=== PATIENT | male | born 1975 | race Caucasian/White ===

== ENCOUNTER → 2016-11-21 | Outpatient (CLI) | payer BC | LOC: MW.CHFP 08:57 | PROVIDERS: ATTEND Family Medicine | DX: N39.0 Urinary tract infection, site not specified (principal); R30.0 Dysuria | CPT/HCPCS: 81001; 87491; 87591 ==

== ENCOUNTER 2018-03-15 08:56 | Emergency (ER) | payer BC ==
[2018-03-15 09:24] VITALS: BP 140/109
[2018-03-15] MEDS ORDERED: Sodium Chloride 0.9% 2.5 ML Syringe FLUSH PRN (09:25)
[2018-03-15] MEDS ORDERED: Sodium Chloride 0.9% 10 ML Syringe FLUSH PRN (09:25)
[2018-03-15] MEDS ORDERED: Ketorolac 30 MG/ML SDV IVPUSH ONE (09:25)
[2018-03-15] MEDS ORDERED: Sodium Chloride 0.9% 1,000 ML IV ONE (09:25)
--- NOTE | 2018-03-15 09:28 | EDM.PDOC ---
ED HPI GENERAL MEDICAL PROBLEM - General Chief Complaint: Abdominal Pain Stated Complaint: ABD PAIN Time Seen by Provider: 03/15/18 09:16 - History of Present Illness INITIAL COMMENTS - FREE TEXT/NARRATIVE: HISTORY AND PHYSICAL: History of present illness: The patient is a 42-year-old male with no GI history except for acid reflux for which he takes Nexium and no abdominal surgical history who presents with lower abdominal pain that has been going on since Thursday night,. The patient says is that the pain started gradually and has increased in intensity but is not associated with dysuria frequency urgency hematuria flank pain nausea vomiting fevers or chills. The patient has no surgical history and has no testicular pain or swelling. He says he has been eating and drinking normally and has no anorexia. The patient has not taken any [id number] medication but does feel like his abdomen is bloated with pain. He states that the pain is bilateral in the lower abdomen and does not localize right or left. The pain does not radiate elsewhere. He has no other systemic complaints no upper respiratory symptoms no recent trauma. The patient has been having normal bowel movements over the last 2-1/2 days and they're not black or bloody nor are they constipated or diarrhea. He had a bowel movement this morning which is normal for him. Review of systems: As per history of present illness and below otherwise all systems reviewed and negative. Past medical history: As per history of present illness and as reviewed below otherwise noncontributory. Surgical history: As per history of present illness and as reviewed below otherwise noncontributory. Social history: No reported history of drug or alcohol abuse. Family history: As per history of present illness and as reviewed below otherwise noncontributory. Physical exam: General: Well-developed well-nourished overweight man who is nontoxic and moves easily in the ED. Vital signs have been reviewed by me HEENT: Atraumatic, normocephalic, negative for conjunctival pallor or scleral icterus, mucous membranes moist, throat clear, neck supple, nontender, trachea midline. Lungs: Clear to auscultation, breath sounds equal bilaterally, chest nontender. Heart: S1S2, regular, negative for clicks, rubs, or JVD. Abdomen: Soft, nondistended, abdomen is rotund and there is some mild tenderness in the lower abdomen bilaterally and suprapubically as well as some periumbilical and right upper quadrant discomfort. There is no rebound or guarding and bowel sounds are normoactive. Negative for masses or hepatosplenomegaly. Negative for costovertebral tenderness. Pelvis: Stable nontender. Genitourinary: Deferred. Rectal: Deferred. Extremities: Atraumatic, negative for cords or calf pain. Neurovascular unremarkable. Neuro: Awake, alert, oriented. Cranial nerves II through XII unremarkable. Cerebellum unremarkable. Motor and sensory unremarkable throughout. Exam nonfocal. Diagnostics: CBC CMP amylase lipase UA CT scan of the abdomen and pelvis urine culture Therapeutics: IV fluids Toradol Cipro Flagyl Please note that there were multiple delays in trying to get the CT scan performed and to get those results. Patient was made aware of these delays. Discussed all testing results with the patient in care plan for home to treat his diverticulitis. We have talked about increasing fiber in his diet and caffeine intake and push hydration and reasons to return to the ED. He does have a provider in the family practice clinic which have advised him to follow- up with and I will prescribe Cipro Flagyl and Bentyl for home. The patient was given a dose of Cipro and Flagyl orally here, but he was offered the first dose IV and declines and would like to disconnect going home. Impression: Lower abdominal pain, diverticulitis Definitive disposition and diagnosis as appropriate pending reevaluation and review of above. abdomen Pain Score (Numeric/FACES): 8 - Related Data Allergies Allergy/AdvReac Type Severity Reaction Status Date / Time No Known Allergies Allergy Verified 03/15/18 09:19 Home Meds: Home Meds Esomeprazole Magnesium [Nexium] 20 mg PO DAILY PRN 03/15/18 [History] Past Medical History - Past Health History Medical/Surgical History: Denies Medical/Surgical History Cardiovascular History: Reports: Hypertension Gastrointestinal History: Reports: GERD Social & Family History - Living Situation & Occupation Living situation: Reports: ED ROS GENERAL - Review of Systems Review Of Systems: ROS reveals no pertinent complaints other than HPI. ED EXAM, GENERAL - Physical Exam Exam: See Below (See dictation) Course - Vital Signs Last Recorded V/S: Last Vital Signs Temp 36.3 C 03/15/18 09:22 Pulse 80 03/15/18 09:22 Resp 18 03/15/18 09:22 BP 140/109 H 03/15/18 09:22 Pulse Ox 96 03/15/18 09:22 - Orders/Labs/Meds Orders: Active Orders 24 hr Category Date Time Status Abdomen Pelvis w Cont [CT] Stat Exams 03/15/18 09:25 Taken CULTURE URINE [RM] Stat Lab 03/15/18 10:35 Received UA W/MICROSCOPIC [URIN] Stat Lab 03/15/18 10:35 Ordered Ciprofloxacin [Ciprofloxacin HCl] Med 03/15/18 12:25 Once 500 mg PO ONETIME ONE Sodium Chloride 0.9% [Saline Flush] Med 03/15/18 09:25 Active 10 ml FLUSH ASDIRECTED PRN Sodium Chloride 0.9% [Saline Flush] Med 03/15/18 09:25 Active 2.5 ml FLUSH ASDIRECTED PRN metroNIDAZOLE Med 03/15/18 12:25 Once 500 mg PO ONETIME ONE Saline Lock Insert [OM.PC] Stat Oth 03/15/18 09:24 Ordered Medication Orders Ciprofloxacin (Ciprofloxacin Hcl) 500 mg PO ONETIME ONE Stop: 03/15/18 12:26 Metronidazole (Metronidazole) 500 mg PO ONETIME ONE Stop: 03/15/18 12:26 Sodium Chloride (Saline Flush) 10 ml FLUSH ASDIRECTED PRN PRN Reason: Keep Vein Open Last Admin: 03/15/18 09:38 Dose: 10 ml Sodium Chloride (Saline Flush) 2.5 ml FLUSH ASDIRECTED PRN PRN Reason: Keep Vein Open Last Admin: 03/15/18 09:38 Dose: 2.5 ml Labs: Laboratory Tests 03/15/18 03/15/18 03/15/18 Range/Units 09:35 09:35 10:35 WBC 9.45 (4.0-11.0) K/uL RBC 4.88 (4.50-5.90) M/uL Hgb 14.1 (13.0-17.0) g/dL Hct 41.9 (38.0-50.0) % MCV 85.9 (80.0-98.0) fL MCH 28.9 (27.0-32.0) pg MCHC 33.7 (31.0-37.0) g/dL RDW Std Deviation 41.5 (28.0-62.0) fl RDW Coeff of [place] 13 (11.0-15.0) % Plt Count 303 (150-400) K/uL MPV 9.90 (7.40-12.00) fL Neut % (Auto) 70.1 (48.0-80.0) % Lymph % (Auto) 18.9 (16.0-40.0) % [place] % (Auto) 9.5 (0.0-15.0) % Eos % (Auto) 1.3 (0.0-7.0) % Baso % (Auto) 0.2 (0.0-1.5) % Neut # (Auto) 6.6 H (1.4-5.7) K/uL Lymph # (Auto) 1.8 (0.6-2.4) K/uL [place] # (Auto) 0.9 H (0.0-0.8) K/uL Eos # (Auto) 0.1 (0.0-0.7) K/uL Baso # (Auto) 0.0 (0.0-0.1) K/uL Nucleated RBC % 0.0 /100WBC Nucleated RBCs # 0 K/uL Sodium 138 (136-148) mmol/L Potassium 4.1 (3.5-5.1) mmol/L Chloride 105 (98-107) mmol/L Carbon Dioxide 28.1 (21.0-32.0) mmol/L BUN 17 (7.0-18.0) mg/dL Creatinine 1.3 (0.8-1.3) mg/dL Est Cr Clr Drug Dosing 74.87 mL/min Estimated GFR (MDRD) 60.0 ml/min Glucose 95 (74-106) mg/dL Calcium 8.9 (8.5-10.1) mg/dL Total Bilirubin 0.4 (0.2-1.0) mg/dL AST 15 (15-37) IU/L ALT 20 (14-63) IU/L Alkaline Phosphatase 81 (46-116) U/L Total Protein 7.5 (6.4-8.2) g/dL Albumin 3.4 (3.4-5.0) g/dL Globulin 4.1 H (2.0-3.5) g/dL Albumin/Globulin Ratio 0.8 L (1.3-2.8) Amylase 53 (25-115) U/L Lipase 169 (73-393) U/L Urine Color YELLOW Urine Appearance CLEAR Urine pH 6.5 (5.0-8.0) Ur Specific [place] 1.020 (1.001-1.035) Urine Protein NEGATIVE (NEGATIVE) mg/dL Urine Glucose (UA) NEGATIVE (NEGATIVE) mg/dL Urine Ketones NEGATIVE (NEGATIVE) mg/dL Urine Occult Blood NEGATIVE (NEGATIVE) Urine Nitrite NEGATIVE (NEGATIVE) Urine Bilirubin NEGATIVE (NEGATIVE) Urine Urobilinogen 0.2 (<2.0) EU/dL Ur Leukocyte Esterase NEGATIVE (NEGATIVE) Urine RBC 0-2 (0-2/HPF) Urine WBC 2-5 (0-5/HPF) Ur Epithelial Cells RARE (NONE-FEW) Urine Bacteria FEW (NEGATIVE) Urine Mucus LIGHT (NONE-MOD) Meds: Medications Generic Name Dose Route Start Last Admin Trade Name Doreen PRN Reason Stop Dose Admin Ciprofloxacin 500 mg 03/15/18 12:25 Ciprofloxacin Hcl PO 03/15/18 12:26 ONETIME ONE Metronidazole 500 mg 03/15/18 12:25 Metronidazole PO 03/15/18 12:26 ONETIME ONE Sodium Chloride 10 ml 03/15/18 09:25 03/15/18 09:38 Saline Flush FLUSH 10 ml ASDIRECTED PRN Administration Keep Vein Open Sodium Chloride 2.5 ml 03/15/18 09:25 03/15/18 09:38 Saline Flush FLUSH 2.5 ml ASDIRECTED PRN Administration Keep Vein Open Discontinued Medications Generic Name Dose Route Start Last Admin Trade Name Doreen PRN Reason Stop Dose Admin Sodium Chloride 1,000 mls @ 999 mls/hr 03/15/18 09:25 03/15/18 09:38 Normal Saline IV 03/15/18 10:25 999 mls/hr STAT ONE Administration Iopamidol 100 ml 03/15/18 11:42 03/15/18 11:42 Isovue Multipack-370 (76%) IVPUSH 03/15/18 11:43 100 ml ONETIME STA Administration Ketorolac Tromethamine 30 mg 03/15/18 09:25 03/15/18 10:15 Toradol IVPUSH 03/15/18 09:26 30 mg ONETIME ONE Administration Departure - Departure Time of Disposition: 12:26 Disposition: Home, Self-Care 01 Condition: Good Clinical Impression: Diverticulitis - Discharge Information Referrals: PCP,None [Primary Care Provider] - Forms: ED Department Discharge Additional Instructions: The following information is given to patients seen in the emergency department who are being discharged to home. This information is to outline your options for follow-up care. We provide all patients seen in our emergency department with a follow-up referral. The need for follow-up, as well as the timing and circumstances, are variable depending upon the specifics of your emergency department visit. If you don't have a primary care physician on staff, we will provide you with a referral. We always advise you to contact your personal physician following an emergency department visit to inform them of the circumstance of the visit and for follow-up with them and/or the need for any referrals to a consulting specialist. The emergency department will also refer you to a specialist when appropriate. This referral assures that you have the opportunity for followup care with a specialist. All of these measure are taken in an effort to provide you with optimal care, which includes your followup. Under all circumstances we always encourage you to contact your private physician who remains a resource for coordinating your care. When calling for followup care, please make the office aware that this follow-up is from your recent emergency room visit. If for any reason you are refused follow-up, please contact the [facility] emergency department at and ask to speak to the emergency department charge nurse. [facility] Primary care- Internal Medicine and Family [address] [address] Please call and follow-up with your provider in the family practice clinic as we discussed in the next week to 10 days and return to ER as needed and as discussed. You had been prescribed Cipro Flagyl and Bentyl to your local pharmacy which she needs to picker feeder and use as directed. Please push hydration and increase fiber in your diet. - My Orders Last 24 Hours: My Active Orders 03/15/18 09:24 Saline Lock Insert [OM.PC] Stat 03/15/18 09:25 Abdomen Pelvis w Cont [CT] Stat Sodium Chloride 0.9% [Saline Flush] 10 ml FLUSH ASDIRECTED PRN Sodium Chloride 0.9% [Saline Flush] 2.5 ml FLUSH ASDIRECTED PRN 03/15/18 10:35 CULTURE URINE [RM] Stat UA W/MICROSCOPIC [URIN] Stat 03/15/18 12:25 Ciprofloxacin [Ciprofloxacin HCl] 500 mg PO ONETIME ONE metroNIDAZOLE 500 mg PO ONETIME ONE - Assessment/Plan Last 24 Hours: My Active Orders 03/15/18 09:24 Saline Lock Insert [OM.PC] Stat 03/15/18 09:25 Abdomen Pelvis w Cont [CT] Stat Sodium Chloride 0.9% [Saline Flush] 10 ml FLUSH ASDIRECTED PRN Sodium Chloride 0.9% [Saline Flush] 2.5 ml FLUSH ASDIRECTED PRN 03/15/18 10:35 CULTURE URINE [RM] Stat UA W/MICROSCOPIC [URIN] Stat 03/15/18 12:25 Ciprofloxacin [Ciprofloxacin HCl] 500 mg PO ONETIME ONE metroNIDAZOLE 500 mg PO ONETIME ONE
[2018-03-15] MEDS ORDERED: Iopamidol 755 MG/ML 500 ML Multipack Bottle IVPUSH STA (11:42)
[2018-03-15] MEDS ORDERED: metroNIDAZOLE 250 MG Tab PO ONE (12:25)
[2018-03-15] MEDS ORDERED: Ciprofloxacin 500 MG Tab PO ONE (12:25)
--- NOTE | 2018-03-15 17:41 | CT ---
EXAM DATE: 03/15/18 PATIENT'S AGE: 42 Patient: BAIRON ABURTO Facility: [place], [place] Site . Site : [id number] Study: CT Abdomen/Pelvis W CONT [id number]/20/2018 11:11:08 AM Ordering Physician: Carlton Moura Final Report: INDICATION: Abdominal pain. COMPARISON: CT scan of the abdomen and pelvis dated 28 December 2009. TECHNIQUE: CT scan of the abdomen and pelvis with intravenous contrast administered. FINDINGS: The lung bases are unremarkable. A few very small low attenuation lesions in the liver which may represent cysts but are too small to adequately characterize. No other focal abnormalities identified in the visualized portions of the liver, spleen, pancreas, and adrenal glands. 1.6 cm cyst in the lower pole of the right kidney. The kidneys are otherwise unremarkable. No hydronephrosis. No obstructing uroliths. Colonic diverticulosis. Focal bowel wall thickening and pericolonic edema involving the proximal sigmoid colon. Small hiatal hernia. The remainder of the GI tract is incompletely distended but shows no gross abnormalities. Normal appendix. No retroperitoneal, pelvic sidewall, or mesenteric adenopathy. IMPRESSION: Diverticulitis involving the proximal sigmoid colon. No evidence of perforation. Dictated by Donn Davison MD @ 03/15/2018 12:19:53 PM Dictated by: Donn Davison MD @ 03/15/2018 12:20:03 (Electronic Signature) Report Signed by Proxy. [facility] HOSPITALIsaac
== END 2018-03-15 12:54 | disposition home or self-care (01) ==
LOC: MW.ED 08:56
DX: K57.32 Diverticulitis of large intestine without perforation or abscess without bleeding (principal); I10 Essential (primary) hypertension
CPT/HCPCS: 36415; 74177; 80053; 81001; 82150; 83690; 85025; 87086; 96361; 96374; 99284; A9270; J1885; J7040; Q9967

== ENCOUNTER 2022-12-31 05:03 | Inpatient (IN) | payer BC ==
[2022-12-31] MEDS ORDERED: Aspirin 81 MG Tab.Chew PO ONE (05:08)
[2022-12-31] MEDS ORDERED: Nitroglycerin 0.4 MG Tab.SL SL PRN (05:13)
[2022-12-31 06:10] LABS: BASOPHILS PERCENT AUTO 0.2 % (0.0-1.5); EOSINOPHILS PERCENT AUTO 0.2 % (0.0-7.0); HEMATOCRIT 43.6 % (38.0-50.0); HEMOGLOBIN 14.6 g/dL (13.0-17.0); LYMPHOCYTES ABSOLUTE AUTO 0.8 K/uL (0.6-2.4); LYMPHOCYTES PERCENT AUTO 15.3 % (16.0-40.0); MEAN CORPUSCULAR HEMOGLOBIN 28.2 pg (27.0-32.0); MEAN CORPUSCULAR HGB CONC 33.5 g/dL (31.0-37.0); MEAN CORPUSCULAR VOLUME 84.3 fL (80.0-98.0); MONOCYTES ABSOLUTE AUTO 0.1 K/uL (0.0-0.8); NEUTROPHILS ABSOLUTE AUTO 4.2 K/uL (1.4-5.7); NEUTROPHILS PERCENT AUTO 82.3 % (48.0-80.0); PLATELET COUNT,PLT 242 K/uL (150-400); RED BLOOD CELL COUNT 5.17 M/uL (4.50-5.90); WHITE BLOOD CELL COUNT,WBC 5.11 K/uL (4.0-11.0)
[2022-12-31 06:29] LABS: D-DIMER QUANTITATIVE 1.27 mg/L FEU (0.00-0.50); INR 1.01 (0.86-1.11)
[2022-12-31 06:30] LABS: PTT,PARTIAL THROMBOPLSTIN TIME < 20.0 SEC (23.9-30.7)
[2022-12-31 06:34] LABS: ALBUMIN 3.5 g/dL (3.4-5.0); BILIRUBIN TOTAL 0.4 mg/dL (0.2-1.0); CALCIUM 8.4 mg/dL (8.5-10.1); CARBON DIOXIDE,CO2 26.9 mmol/L (21.0-32.0); CREATININE 1.5 mg/dL (0.8-1.3); EST CRCL DRUG DOSING (CG) 61.51 mL/min; POTASSIUM,K 3.7 mmol/L (3.5-5.1)
[2022-12-31] MEDS ORDERED: Iopamidol 755 MG/ML 500 ML Multipack Bottle IVPUSH STA (07:06)
[2022-12-31] MEDS ORDERED: cefTRIAXone 1 GM in Sodium Chloride 0.9% 50 ML IV ONE (07:44)
[2022-12-31] MEDS ORDERED: Azithromycin 500 MG in Sodium Chloride 0.9% 250 ML IV ONE (07:44)
[2022-12-31] MEDS ORDERED: Acetaminophen 325 MG Tab PO ONE (08:04)
[2022-12-31] MEDS ORDERED: Ibuprofen 600 MG Tab PO ONE (08:04)
[2022-12-31] MEDS ORDERED: Sodium Chloride 0.9% 10 ML Syringe FLUSH PRN (08:54)
[2022-12-31] MEDS ORDERED: Acetaminophen 325 MG Tab PO PRN (08:54)
[2022-12-31] MEDS ORDERED: Albuterol/Ipratropium 3.0-0.5 MG/3 ML Neb Soln NEB PRN (08:54)
[2022-12-31] MEDS ORDERED: Ondansetron 4 MG/2 ML SDV IVPUSH PRN (08:54)
[2022-12-31] MEDS ORDERED: Sodium Chloride 0.9% 2.5 ML Syringe FLUSH PRN (08:54)
[2022-12-31] MEDS ORDERED: Docusate Sodium 100 MG Cap PO PRN (08:54)
[2022-12-31 09:07] LABS: CORONAVIRUS COVID-19 NAA NEGATIVE (NEGATIVE); INFLUENZA A NAA NEGATIVE (NEGATIVE); INFLUENZA B NAA NEGATIVE (NEGATIVE); RESPIRATORY SYNCYTIAL VIR NAA NEGATIVE (NEGATIVE)
[2022-12-31] MEDS: Sodium Chloride 0.9% 1,000 ML IV SCH ×2 (11:08→19:02)
[2022-12-31] MEDS ORDERED: Sodium Chloride 0.9% 1,000 ML IV SCH (14:00)
[2022-12-31] MEDS: Enoxaparin 40 MG/0.4 ML Syringe SUBCUT SCH (16:19)
[2023-01-01] MEDS: Enoxaparin 40 MG/0.4 ML Syringe SUBCUT SCH (04:58)
[2023-01-01 06:04] LABS: BASOPHILS PERCENT AUTO 0.1 % (0.0-1.5); EOSINOPHILS ABSOLUTE AUTO 0.1 K/uL (0.0-0.7); EOSINOPHILS PERCENT AUTO 0.4 % (0.0-7.0); HEMATOCRIT 38.2 % (38.0-50.0); HEMOGLOBIN 12.5 g/dL (13.0-17.0); LYMPHOCYTES ABSOLUTE AUTO 1.4 K/uL (0.6-2.4); LYMPHOCYTES PERCENT AUTO 10.1 % (16.0-40.0); MEAN CORPUSCULAR HEMOGLOBIN 27.8 pg (27.0-32.0); MEAN CORPUSCULAR HGB CONC 32.7 g/dL (31.0-37.0); MEAN CORPUSCULAR VOLUME 85.1 fL (80.0-98.0); MONOCYTES ABSOLUTE AUTO 0.7 K/uL (0.0-0.8); MONOCYTES PERCENT AUTO 4.7 % (0.0-15.0); NEUTROPHILS ABSOLUTE AUTO 11.9 K/uL (1.4-5.7); NEUTROPHILS PERCENT AUTO 84.7 % (48.0-80.0); NRBC ABSOLUTE 0 K/uL; PLATELET COUNT,PLT 262 K/uL (150-400); RED BLOOD CELL COUNT 4.49 M/uL (4.50-5.90); WHITE BLOOD CELL COUNT,WBC 14.01 K/uL (4.0-11.0)
[2023-01-01 07:00] LABS: CALCIUM 7.8 mg/dL (8.5-10.1); CARBON DIOXIDE,CO2 23.4 mmol/L (21.0-32.0); CREATININE 1.3 mg/dL (0.8-1.3); EST CRCL DRUG DOSING (CG) 70.97 mL/min; MAGNESIUM 1.7 mg/dL (1.8-2.4); POTASSIUM,K 3.8 mmol/L (3.5-5.1)
[2023-01-01] MEDS ORDERED: Pantoprazole 40 MG Tab.CR PO SCH (07:30)
[2023-01-01] MEDS ORDERED: Losartan 50 MG Tab PO SCH (09:00)
[2023-01-01] MEDS ORDERED: cefTRIAXone 1 GM in Sodium Chloride 0.9% 50 ML IV SCH (09:00)
[2023-01-01] MEDS ORDERED: Azithromycin 500 MG in Sodium Chloride 0.9% 250 ML IV SCH (09:00)
[2023-01-01 11:59] VITALS: BP 143/85; PULSE 82
== END 2023-01-01 11:24 | disposition home or self-care (01) | DRG 139 ==
LOC: MW.ED 05:03 → MW.MS 08:05
PROVIDERS: ADMIT Internal Medicine; ATTEND Internal Medicine
DX: J18.9 Pneumonia, unspecified organism (principal); N17.9 Acute kidney failure, unspecified; I10 Essential (primary) hypertension; E66.01 Morbid (severe) obesity due to excess calories; Z68.41 Body mass index [BMI] 40.0-44.9, adult; K21.9 Gastro-esophageal reflux disease without esophagitis; F32.A Depression, unspecified; Z20.822 Contact with and (suspected) exposure to COVID-19; F10.10 Alcohol abuse, uncomplicated; Z79.899 Other long term (current) drug therapy
CPT/HCPCS: 0241U; 36415; 71045; 71045-26; 71275; 71275-26; 80048; 80053; 83605; 83690; 83735; 84484; 85025; 85379; 85610; 85730; 87040; 87899; 93005; 96365; 96375; 96376; 99285-25; A9270-GY; J0456; J0696; J1650; J3490; J7030; J7050; Q9967

== ENCOUNTER 2023-05-07 08:52 | Emergency (ER) | payer BC ==
[2023-05-07 09:27] LABS: BASOPHILS ABSOLUTE AUTO 0.05 K/uL (0.00-0.20); BASOPHILS PERCENT AUTO 0.8 % (0.0-1.0); EOSINOPHILS ABSOLUTE AUTO 0.09 K/uL (0.00-0.45); EOSINOPHILS PERCENT AUTO 1.5 % (0.0-6.0); HEMATOCRIT 39.9 % (42.0-52.0); HEMOGLOBIN 13.3 g/dL (14.0-18.0); IMMATURE GRAN ABSOLUTE AUTO 0.01 K/uL (0.00-0.05); IMMATURE GRAN PERCENT AUTO 0.2 % (0.0-0.4); LYMPHOCYTES ABSOLUTE AUTO 1.91 K/uL (1.00-4.80); LYMPHOCYTES PERCENT AUTO 31.9 % (24.0-44.0); MEAN CORPUSCULAR HGB CONC 33.3 g/dL (32.0-36.0); MEAN CORPUSCULAR VOLUME 81.1 fL (83.0-99.0); MEAN PLATELET VOLUME 9.3 fL (9.4-12.4); MONOCYTES ABSOLUTE AUTO 0.64 K/uL (0.00-0.80); MONOCYTES PERCENT AUTO 10.7 % (0.0-8.0); NEUTROPHILS ABSOLUTE AUTO 3.29 K/uL (1.80-7.70); NEUTROPHILS PERCENT AUTO 54.9 % (41.0-71.0); PLATELET COUNT,PLT 294 K/uL (150-400); RED BLOOD CELL COUNT 4.92 M/uL (4.52-5.90); WHITE BLOOD CELL COUNT,WBC 5.99 K/uL (3.9-11.3)
[2023-05-07 09:46] LABS: ALBUMIN 3.5 g/dL (3.4-5.0); BILIRUBIN TOTAL 0.3 mg/dL (0.2-1.0); CALCIUM 8.2 mg/dL (8.5-10.1); CARBON DIOXIDE,CO2 25.6 mmol/L (21.0-32.0); CREATININE 1.3 mg/dL (0.8-1.3); EST CRCL DRUG DOSING (CG) 70.97 mL/min; POTASSIUM,K 4.1 mmol/L (3.5-5.1); PROTEIN TOTAL,TP 7.1 g/dL (6.4-8.2)
[2023-05-07] MEDS ORDERED: Iopamidol 755 MG/ML 500 ML Multipack Bottle IVPUSH STA (10:09)
[2023-05-07 11:12] VITALS: BP 159/106
[2023-05-07 11:20] VITALS: PULSE 66
== END 2023-05-07 11:19 | disposition home or self-care (01) ==
LOC: MW.ED 08:52
DX: R13.10 Dysphagia, unspecified (principal); I10 Essential (primary) hypertension; F17.210 Nicotine dependence, cigarettes, uncomplicated
CPT/HCPCS: 36415; 71260; 80053; 84484; 85025; 93005; 99285; Q9967; 93010; 99284

== ENCOUNTER 2023-05-29 06:11 | Day surgery (SDC) | payer BC ==
[~2023-05-29 06:11] MED LIST: Lactated Ringers 1,000 ML IV SCH
[2023-05-29] MEDS ORDERED: Water For Injection, Sterile 20 ML ONE (07:30)
[2023-05-29] MEDS ORDERED: Propofol 200 MG/20 ML SDV ONE (07:30)
[2023-05-29] MEDS ORDERED: Dexmedetomidine 200 MCG/2 ML SDV ONE (07:30)
[2023-05-29] MEDS ORDERED: Lactated Ringers 1,000 ML IV SCH (08:30)
[2023-05-29 08:52] VITALS: BP 126/86; PULSE 70
== END 2023-05-29 09:00 | disposition home or self-care (01) ==
LOC: MW.SDS 06:11
PROVIDERS: ATTEND Surgery
DX: K21.00 Gastro-esophageal reflux disease with esophagitis, without bleeding (principal); K29.80 Duodenitis without bleeding; K29.50 Unspecified chronic gastritis without bleeding; K31.7 Polyp of stomach and duodenum; K44.9 Diaphragmatic hernia without obstruction or gangrene; Q43.8 Other specified congenital malformations of intestine; K22.89 Other specified disease of esophagus; F41.0 Panic disorder [episodic paroxysmal anxiety]; I10 Essential (primary) hypertension; F32.9 Major depressive disorder, single episode, unspecified; E66.01 Morbid (severe) obesity due to excess calories; Z79.85 Long-term (current) use of injectable non-insulin antidiabetic drugs; Z79.899 Other long term (current) drug therapy; Z68.38 Body mass index [BMI] 38.0-38.9, adult; Z72.0 Tobacco use
CPT/HCPCS: 43239; J2704; J7120; 00731; J3490

== ENCOUNTER 2025-02-10 02:40 | Emergency (ER) | payer BC ==
[2025-02-10 03:38] LABS: BASOPHILS ABSOLUTE AUTO 0.06 K/uL (0.00-0.20); BASOPHILS PERCENT AUTO 0.8 % (0.0-1.0); EOSINOPHILS ABSOLUTE AUTO 0.14 K/uL (0.00-0.45); EOSINOPHILS PERCENT AUTO 1.8 % (0.0-6.0); IMMATURE GRAN ABSOLUTE AUTO 0.03 K/uL (0.00-0.05); IMMATURE GRAN PERCENT AUTO 0.4 % (0.0-0.4); LYMPHOCYTES ABSOLUTE AUTO 1.97 K/uL (1.00-4.80); LYMPHOCYTES PERCENT AUTO 24.7 % (24.0-44.0); MEAN PLATELET VOLUME 9.7 fL (9.4-12.4); MONOCYTES ABSOLUTE AUTO 0.50 K/uL (0.00-0.80); MONOCYTES PERCENT AUTO 6.3 % (0.0-8.0); NEUTROPHILS ABSOLUTE AUTO 5.29 K/uL (1.80-7.70); NEUTROPHILS PERCENT AUTO 66.0 % (41.0-71.0); NRBC ABSOLUTE 0.00 K/uL (0.00-0.02); NRBC PERCENT 0.0 /100WBC (0.0-0.2); PLATELET COUNT,PLT 293 K/uL (150-400); RED BLOOD CELL COUNT 5.33 M/uL (4.52-5.90); WHITE BLOOD CELL COUNT,WBC 7.99 K/uL (3.9-11.3)
[2025-02-10 04:00] LABS: A/G RATIO 1.0 (0.9-1.6); ALANINE AMINOTRANSFERASE,ALT 27.0 IU/L (14-63); ASPARTATE AMNIOTRANSFERASE,AST 20.0 IU/L (15-37); BILIRUBIN TOTAL 0.6 mg/dL (0.2-1.0); BLOOD UREA NITROGEN,BUN 19.0 mg/dL (7.0-18.0); CARBON DIOXIDE,CO2 25.2 mmol/L (21.0-32.0); CHLORIDE,CL 102.0 mmol/L (98-107); CREATININE 1.6 mg/dL (0.8-1.3); EST CRCL DRUG DOSING (CG) 56.4 mL/min; GLUCOSE RANDOM 136.0 mg/dL (74-106); POTASSIUM,K 4.0 mmol/L (3.5-5.1); PROTEIN TOTAL,TP 7.5 g/dL (6.4-8.2); SODIUM,NA 138.0 mmol/L (136-148)
[2025-02-10 04:01] LABS: ESTIMATED GFR 52.0 mL/min (>60)
[2025-02-10] MEDS: Ketorolac 60 MG/2 ML SDV IM ONE (04:50)
[2025-02-10 05:01] VITALS: BP 138/84; PULSE 78
== END 2025-02-10 05:01 | disposition home or self-care (01) ==
LOC: MW.ED 02:40
DX: M53.3 Sacrococcygeal disorders, not elsewhere classified (principal); M54.50 Low back pain, unspecified; I10 Essential (primary) hypertension; F17.200 Nicotine dependence, unspecified, uncomplicated; Z79.899 Other long term (current) drug therapy; Z75.3 Unavailability and inaccessibility of health-care facilities
CPT/HCPCS: 36415; 80053; 85025; 96372; 99283; A9270; J1885